=== PATIENT | male | born 1960 | race Caucasian/White ===

== ENCOUNTER → 2016-12-21 | Outpatient (CLI) | payer BC | LOC: CARDREHAB 07:55 | DX: I25.10 Atherosclerotic heart disease of native coronary artery without angina pectoris (principal); I10 Essential (primary) hypertension; F17.200 Nicotine dependence, unspecified, uncomplicated; R06.00 Dyspnea, unspecified; Z82.49 Family history of ischemic heart disease and other diseases of the circulatory system; E78.5 Hyperlipidemia, unspecified | CPT/HCPCS: A9500 ==

== ENCOUNTER 2021-03-17 18:06 | Emergency (ER) | payer BC ==
[2021-03-17] MEDS ORDERED: VITAMIN D3125 MC1 PO (18:38)
[2021-03-17] MEDS ORDERED: VITAMIN B-121000 MC2 PO (18:39)
[2021-03-17] MEDS ORDERED: CARVEDILOL25 MG PO (18:39)
[2021-03-17] MEDS ORDERED: TAPAZOLE5 MG PO (18:39)
[2021-03-17] MEDS ORDERED: DAILY-VITE1 EACH PO (18:39)
[2021-03-17] MEDS ORDERED: ASPIR-TRIN325 M1 PO (18:40)
[2021-03-17] MEDS ORDERED: ATORVASTATIN CA20 MG PO (18:40)
[2021-03-17] MEDS ORDERED: KRILL OIL 3501 EACH PO (18:40)
[2021-03-17] MEDS ORDERED: CO Q-10200 MG PO (18:40)
[2021-03-17] MEDS ORDERED: TURMERIC COMPL1 EACH PO (18:40)
[2021-03-17] MEDS ORDERED: VITAMIN E90 MG PO (18:42)
[2021-03-17 18:44] LABS: BASO # 0.01 (0.02-0.10); EOS # 0.13 (0.04-0.40); EOS % 1.7 % (0.0-4.0); HEMATOCRIT 44.2 % (42.0-52.0); HEMOGLOBIN 14.8 g/dL (13.5-18.0); LYMPH# 1.86 (1.50-4.00); MEAN CELL VOLUME 91 fl (78-100); MEAN CORPUSCULAR HEMOGLOBIN 31 pg (27-31); MEAN CORPUSCULAR HGB CONC 34 g/dL (33-37); MEAN PLATELET VOLUME 8.3 fl (7.4-10.4); NEU # 4.63 (1.40-6.50); PLATELET COUNT 168 K/mm3 (130-400); RED BLOOD COUNT 4.86 M/mm3 (4.20-5.60); RED CELL DISTRIBUTION WIDTH 13.7 % (11.5-14.5); WHITE BLOOD COUNT 7.8 K/mm3 (4.8-10.8)
[2021-03-17 18:47] LABS: ALBUMIN 4.2 g/dL (3.4-4.8)
[2021-03-17 18:48] LABS: CALCIUM 9.5 mg/dL (8.3-10.5)
[2021-03-17 18:50] LABS: TOTAL PROTEIN 7.6 g/dL (6.2-8.1)
[2021-03-17 18:51] LABS: TOTAL BILIRUBIN 0.7 mg/dL (0.2-1.2)
[2021-03-17 21:31] VITALS: BP 115/45
== END 2021-03-17 21:39 | disposition short-term general hospital (02) ==
LOC: ED 18:06
PROVIDERS: Family Medicine
DX: K46.0 Unspecified abdominal hernia with obstruction, without gangrene (principal); I10 Essential (primary) hypertension; I25.10 Atherosclerotic heart disease of native coronary artery without angina pectoris; E78.5 Hyperlipidemia, unspecified; Z20.822 Contact with and (suspected) exposure to COVID-19; Z98.890 Other specified postprocedural states; Z79.82 Long term (current) use of aspirin; Z79.899 Other long term (current) drug therapy
CPT/HCPCS: J2405; J3010